=== PATIENT | female | born 1985 | race Caucasian/White ===

== ENCOUNTER 2017-11-27 09:15 | Emergency (ER) | payer BC, OTHER ==
--- NOTE | 2017-11-27 09:49 | RAD ---
HISTORY: Fall, injury, pain, right ankle COMPARISONS: None VIEWS: 5, Frontal, lateral, and oblique views of the right ankle with frontal and lateral views of the right foreleg FINDINGS: BONE DENSITY: Normal. BONES: There is an oblique nondisplaced fracture of the distal fibula. The tibiofibular interval is intact. JOINTS: There is no arthropathy. ALIGNMENT: There is no dislocation. SOFT TISSUES: Unremarkable. OTHER FINDINGS: None. IMPRESSION: NONDISPLACED FRACTURE OF THE DISTAL FIBULA.
--- NOTE | 2017-11-27 11:10 | ED ---
Lower Extremity - HPI Summary HPI Summary: Patient is an otherwise healthy 32-year-old female presenting to the ED with right ankle pain after slipping and falling on the ice. She believes she inverted her ankle. There is swelling, but no ecchymosis to the right lateral side. Denies any numbness or tingling. Denies temperature changes. Pulses +2 intact bilaterally. She denies any pain to the right lower extremity which is just below the knee and denies any right foot pain. She has been unable to ambulate since the fall. Endorses 5 out of 10 pain discretely located over the right lateral ankle. She has never injured this ankle in the past. She denies taking any medications, slightly overweight. - History of Current Complaint Chief Complaint: EDExtremityLower Stated Complaint: FALL,RT ANKLE INJURY Time Seen by Provider: 11/27/17 09:18 Hx Obtained From: Patient Mechanism Of Injury: Twisted Onset of Pain: Hours Onset/Duration: Hours Severity Initially: Moderate Severity Currently: Moderate Pain Intensity: 7 Pain Scale Used: 0-10 Numeric Timing: Constant Location: Is Discrete @ - Right lateral ankle Character Of Pain: Aching Associated Signs And Symptoms: Positive: Swelling. Negative: Redness, Bruising Aggravating Factor(s): Standing, Ambulation Alleviating Factor(s): Rest Able to Bear Weight: No - Risk Factors Gout Risk Factors: Negative DVT Risk Factors: Negative Septic Arthritis Risk Factor: Negative - Allergies/Home Medications Allergies/Adverse Reactions: Allergies Allergy/AdvReac Type Severity Reaction Status Date / Time No Known Allergies Allergy Verified 11/27/17 10:04 Home Medications: Home Medications NK [No Home Medications Reported] 11/27/17 [History Confirmed 11/27/17] PMH/Surg Hx/FS Hx/Imm Hx Previously Healthy: Yes - Immunization History Hx Pertussis Vaccination: No Immunizations Up to Date: Unable to Obtain/Confirm Infectious Disease History: No Infectious Disease History: Denies: Traveled Outside the [place] in Last 30 Days - Social History Occupation: Employed Full-time Lives: With Family Alcohol Use: Occasionally Hx Substance Use: No Substance Use Type: Reports: None Hx Tobacco Use: No Smoking Status (MU): Never Smoked Tobacco Review of Systems Constitutional: Negative Negative: Fever, Chills, Fatigue, Skin Diaphoresis Eyes: Negative Cardiovascular: Negative Respiratory: Negative Genitourinary: Negative Positive: no symptoms reported, see HPI Positive: Myalgia Positive: Other - swelling Neurological: Negative All Other Systems Reviewed And Are Negative: Yes Physical Exam - Summary Physical Exam Summary: Thorough physical exam was performed, focusing on ankle special tests. Pain on palpation over lateral aspect and superior aspect of ankle over ATFL and deltoid ligaments. No pain on palpation over medial side. Due to patient pain around injury, physical exam was limited. Unable to perform anterior drawer test or talar tilt test d/t pain. Doe test negative. Limited ROM. Dorsiflexion, great toe extension and plantar flexion intact however limited. No pain on palpation over medial or lateral lower extremity. No pain with knee flexion. Pulses intact bilaterally. No temperature change or pallor noted bilaterally. Ecchymosis and swelling noted on lateral aspect. No lesion or disruption of skin is seen. Unable to bear weight. Triage Information Reviewed: Yes Vital Signs On Initial Exam: Initial Vitals Temp Pulse Resp BP Pulse Ox 97.3 F 64 19 134/123 98 11/27/17 09:18 11/27/17 09:18 11/27/17 09:18 11/27/17 09:18 11/27/17 09:18 Vital Signs Reviewed: Yes Appearance: Positive: Well-Appearing, Well-Nourished Skin: Positive: Warm, Skin Color Reflects Adequate Perfusion Head/Face: Positive: Normal Head/Face Inspection Eyes: Positive: EOMI, QUINTEN, Conjunctiva Clear Neck: Positive: Supple, No Lymphadenopathy Respiratory/Lung Sounds: Positive: Clear to Auscultation, Breath Sounds Present Cardiovascular: Positive: RRR, Pulses are Symmetrical in both Upper and Lower Extremities Musculoskeletal: Positive: Pain @ - Right lateral ankle, Other - Range of motion limited. Negative: Anton Sign Left, Anton Sign Right, Edema Left, Edema Right Neurological: Positive: Speech Normal Psychiatric: Positive: Normal Diagnostics - Vital Signs Vital Signs Temp Pulse Resp BP Pulse Ox 11/27/17 10:00 67 97 11/27/17 09:56 63 98 11/27/17 09:54 134/78 11/27/17 09:18 97.3 F 64 19 134/123 98 - Laboratory Lab Statement: Any lab studies that have been ordered have been reviewed, and results considered in the medical decision making process. Lower Extremity Course/Dx - Course Course Of Treatment: During the course of treatment, the patient is evaluated for right ankle pain and swelling.Based on [facility] Ankle Rules, patient sent to imaging. X-ray shows distal fibular fracture. Soft tissue swelling noted over the lateral aspect of the ankle. Medial and lateral distal lower extremity without pain and x-rays show no widening of the ankle joint regarding low suspicion for Maisonneuve fx. posterior sugar tong plaster short-leg splint applied. Patient tolerated well. Crutches given. Patient given orthopedic follow up in 5-7 days. However, she [place] [facility] [place] her this [place]. Encouraged Ibuprofen 600mg three times daily with meals for pain. Return precautions given. Educated patient regarding ankle injuries and healing time and the possibility of further evaluation and imaging as orthopedist sees fit. - Diagnoses Provider Diagnoses: Fracture of distal end of fibula Discharge - Discharge Plan Condition: Stable Disposition: HOME Patient Education Materials: Ankle Fracture (ED) Referrals: Alli Smith MD [Medical Doctor] - No Primary Care Phys,NOPCP [Primary Care Provider] - Additional Instructions: Ibuprofen 600 mg 3 times daily Stay nonweightbearing Crutches Follow up with Ortho today as scheduled
[2017-11-27 11:20] VITALS: BP 134/74
== END 2017-11-27 11:18 | disposition home or self-care (01) ==
LOC: ED 09:15
DX: S82.831A Other fracture of upper and lower end of right fibula, initial encounter for closed fracture (principal); W00.0XXA Fall on same level due to ice and snow, initial encounter; Y92.9 Unspecified place or not applicable
CPT/HCPCS: 99282